=== PATIENT | male | born 1965 | race Native Hawaiian/Other Pacific Islander ===

== ENCOUNTER 2020-11-07 13:50 | Outpatient (CLI) | payer BC ==
[2020-11-07 14:06] LABS: PLATELET COUNT 200 K/uL (142-355)
== END 2020-11-07 19:26 | disposition home or self-care (01) ==
LOC: LABW 13:50
PROVIDERS: ATTEND Nurse Practitioner
DX: D75.1 Secondary polycythemia (principal)
CPT/HCPCS: 36415; 85027; 99195

== ENCOUNTER 2021-11-01 15:58 | Outpatient (CLI) | payer BC | END 2021-11-01 19:28 | disposition home or self-care (01) | LOC: RAD 15:58 | PROVIDERS: ATTEND Nurse Practitioner | DX: M25.532 Pain in left wrist (principal) ==